=== PATIENT | male | born 1990 | race Caucasian/White ===

== ENCOUNTER 2017-03-27 09:43 | Emergency (ER) | payer OTHER ==
[~2017-03-27] VITALS: Ht 177.8 cm; Wt 73.0 kg
[2017-03-27 12:14] VITALS: BP 112/68
[2017-03-27] MEDS ORDERED: IBUP80TA PO (12:42)
--- NOTE | 2017-03-27 13:16 | REP ---
SCROTAL ULTRASOUND: Real-time sonographic evaluation of the scrotum and contents performed. Testicles are normal in size and echotexture, right testicle measuring 5.0 x 2.1 x 2.9 cm and left testicle 5.0 x 2.5 x 3.1 cm. There is no testicular mass or torsion. Blood flow is seen in each testicle with duplex Doppler evaluation. RI of the right testicle is 0.65 and left testicle 0.63. Tiny epididymal cyst is seen bilaterally 2 mm in diameter. No fluid collections are seen. IMPRESSION: No evidence of testicular mass or torsion. Signed by Huey Berry MD 03/27/2017 04:52 P
--- NOTE | 2017-03-27 13:20 | REP ---
INGUINAL ULTRASOUND: Real-time sonographic evaluation of inguinal regions performed to evaluate for possible hernia. There is no evidence of inguinal hernia bilaterally. Normal sized inguinal lymph nodes are present. There is no fluid collection. IMPRESSION: No sonographic evidence of inguinal hernia. Signed by Huey Berry MD 03/27/2017 04:52 P
== END 2017-03-27 12:55 | disposition home or self-care (01) ==
LOC: M ED 11:03
DX: S39.011A Strain of muscle, fascia and tendon of abdomen, initial encounter (principal); N50.3 Cyst of epididymis; X58.XXXA Exposure to other specified factors, initial encounter; Y92.89 Other specified places as the place of occurrence of the external cause; Y93.89 Activity, other specified; Y99.9 Unspecified external cause status